=== PATIENT | female | born 1965 | race Caucasian/White ===

== ENCOUNTER 2016-04-13 16:25 | Outpatient (CLI) | payer OTHER | END 2016-04-13 16:26 | disposition home or self-care (01) | DX: M51.16 Intervertebral disc disorders with radiculopathy, lumbar region (principal); M54.12 Radiculopathy, cervical region ==

== ENCOUNTER 2016-04-14 09:01 | Outpatient (CLI) | payer OTHER | END 2016-04-14 09:02 | disposition home or self-care (01) | DX: Z00.00 Encounter for general adult medical examination without abnormal findings (principal) ==

== ENCOUNTER 2017-11-04 14:10 | Outpatient (CLI) | payer OTHER ==
--- NOTE | 2017-11-07 17:40 | Mammography Report ---
Procedure Date: 11/04/2017 Accession Number: [id number] / [id number] Procedure: MGN - Screening Mammo Dig Bilat CPT Code: FULL RESULT: EXAM: Screening Mammo Dig Bilat DATE: 11/04/2017 2:39 PM CLINICAL HISTORY: Routine screening TECHNIQUE: Bilateral CC and MLO views were obtained. COMPARISON: None FINDINGS: Extensive fatty replacement of the breast tissue. Faint asymmetric density upper outer left breast likely residual normal breast tissue. However due to the lack of comparison mammograms suggest spot compression and true lateral views. Otherwise no suspicious masses, clustered microcalcifications, or regions of architectural distortion are identified. IMPRESSION: Negative right breast. Needs additional evaluation left breast. RECOMMENDATION: Routine annual screening unless otherwise clinically indicated. BIRADS CATEGORY 0: Needs additional evaluation left breast STANDARD QUALIFYING STATEMENTS: 1. This examination was reviewed with the aid of Computer-Aided Detection (CAD). 2. A negative or benign imaging report should not delay biopsy if clinically suspicious findings are present. Consider surgical consultation if warrented. More than 5% of cancers are not identified by imaging. 3. Dense breasts may obscure an underlying neoplasm.
== END 2017-11-04 14:11 | disposition home or self-care (01) ==
LOC: DI.N 14:10
PROVIDERS: ATTEND Radiology Diagnostic Radiology
DX: Z12.31 Encounter for screening mammogram for malignant neoplasm of breast (principal); R92.8 Other abnormal and inconclusive findings on diagnostic imaging of breast
CPT/HCPCS: 77067

== ENCOUNTER 2018-04-27 10:09 | Outpatient (CLI) | payer OTHER ==
--- NOTE | 2018-04-27 13:55 | Mammography Report ---
Reason: ABN MAMMO - LT SPEC VIEWS Procedure Date: 04/27/2018 Accession Number: [id number] / [id number] Procedure: ESEQUIEL - Diag Special Views Dig LT CPT Code: FULL RESULT: EXAM: Diag Special Views Dig LT DATE: 04/27/2018 11:05 AM CLINICAL HISTORY: Short interval follow-up of finding noted on the screening exam of 11/04/2017 left breast. TECHNIQUE: Spot compressed 2-D left CC MLO and ML. Full field 2-D and 3-D 90 degrees lateral. COMPARISON: 11/04/2017. FINDINGS: The breasts demonstrate scattered fibroglandular densities bilaterally. Left breast: There is a persistent 10 mm focal asymmetry associated with probable layering calcifications in the 2:00 breast, 9 cm from the nipple. There are no suspicious areas of distortion. Targeted ultrasound is performed by both the technologist and the radiologist. At 2:00 8 cm from the nipple, sonographic correlate is noted as a oval, circumscribed, hypoechoic/anechoic, nonvascular parallel orientation structure consistent with clustered microcysts with layering calcium. IMPRESSION: Left breast: Clustered microcysts associated milk of calcium 2:00 8 cm from nipple corresponds to initial mammographic finding of concern. Benign. BI-RADS Category 2 recommend return to routine screening mammography, with next bilateral exam due in the October 2018. RECOMMENDATION: Routine annual screening unless otherwise clinically indicated. BI-RADS CATEGORY 2: Benign findings STANDARD QUALIFYING STATEMENTS: 1. This examination was not reviewed with the aid of Computer-Aided Detection (CAD). 2. A negative or benign imaging report should not preclude biopsy if clinically suspicious findings are present. 3. Dense breasts may obscure an underlying neoplasm. 4. This examination was reviewed with the aid of 3D breast imaging (tomosynthesis).
== END 2018-04-27 10:10 | disposition home or self-care (01) ==
LOC: DI 10:09
PROVIDERS: ATTEND Physician Assistant Medical
DX: R92.8 Other abnormal and inconclusive findings on diagnostic imaging of breast (principal); N60.02 Solitary cyst of left breast
CPT/HCPCS: 76642

== ENCOUNTER 2019-07-06 08:00 | Outpatient (CLI) | payer OTHER | END 2019-07-06 23:59 | disposition home or self-care (01) | LOC: LAB.WCP 08:00 | PROVIDERS: ATTEND Family Medicine | DX: R30.0 Dysuria (principal) | CPT/HCPCS: 87086; 87181 ==

== ENCOUNTER 2020-10-07 13:09 | Outpatient (CLI) | payer OTHER ==
[2020-10-07 18:41] LABS: BASOPHILS % (AUTO) 0.9 %; EOSINOPHILS # (AUTO) 0.1 10^3/uL (0.0-0.7); EOSINOPHILS % (AUTO) 2.2 %; HCT - HEMATOCRIT 38.8 % (37.0-47.0); HGB - HEMOGLOBIN 12.7 g/dL (12.0-16.0); LYMPHOCYTES # (AUTO) 1.7 10^3/uL (1.5-3.5); LYMPHOCYTES % (AUTO) 37.5 %; MEAN CORPUSCULAR HEMOGLOBIN 31.4 pg (27.0-31.0); MEAN CORPUSCULAR HGB CONC 32.7 g/dL (32.0-36.0); MEAN PLATELET VOLUME 10.8 fL (7.9-10.8); MONOCYTES # (AUTO) 0.5 10^3/uL (0.0-1.0); MONOCYTES % (AUTO) 11.3 %; NEUTROPHILS # (AUTO) 2.2 10^3/uL (1.5-6.6); NEUTROPHILS % (AUTO) 47.9 %; PLT - PLATELET COUNT 271 10^3/uL (130-450); RED BLOOD COUNT 4.04 10^6/uL (4.20-5.40); RED CELL DISTRIBUTION WIDTH 12.3 % (12.0-15.0); WHITE BLOOD COUNT 4.6 x10^3/uL (4.8-10.8)
[2020-10-07 18:52] LABS: ALBUMIN 4.8 g/dL (3.2-5.5); ALBUMIN/GLOBULIN RATIO 1.3 (1.0-2.2); ALKALINE PHOSPHATASE 48 IU/L (42-121); ALT ALANINE AMINOTRANSFERASE 24 IU/L (10-60); AST ASPARTATE AMINOTRANSFERASE 23 IU/L (10-42); BILIRUBIN,TOTAL 0.9 mg/dL (0.2-1.0); BUN - BLOOD UREA NITROGEN 17 mg/dL (6-20); CALCIUM 9.9 mg/dL (8.5-10.3); CARBON DIOXIDE - CO2 26 mmol/L (21-32); CHLORIDE 103 mmol/L (101-111); CHOL/HDL RATIO 2.8 (<4.4); CHOLESTEROL 216 mg/dL; CREATININE 0.9 mg/dL (0.4-1.0); GFR - MDRD 65 (>89); GLUCOSE 94 mg/dL (70-100); HDL CHOLESTEROL 77 mg/dL; LDL CHOLESTEROL,CALCULATED 123 mg/dL; LDL/HDL RATIO 1.6 (<4.4); POTASSIUM 4.3 mmol/L (3.5-5.0); SODIUM 138 mmol/L (135-145); TOTAL PROTEIN 8.4 g/dL (6.7-8.2); TRIGLYCERIDES 80 mg/dL; VLDL CHOLESTEROL 16 mg/dL
[2020-10-07 18:56] LABS: THYROID STIMULATING HORMONE 3.69 uIU/mL (0.34-5.60)
[2020-10-07 21:18] LABS: ESTIMATED AVERAGE GLUCOSE 114 mg/dL (70-100); HEMOGLOBIN A1c% 5.6 % (4.27-6.07)
== END 2020-10-07 23:59 | disposition home or self-care (01) ==
LOC: LAB.WCP 13:09
PROVIDERS: ATTEND Physician Assistant Medical
DX: Z00.00 Encounter for general adult medical examination without abnormal findings (principal); R73.9 Hyperglycemia, unspecified
CPT/HCPCS: 36415; 80053; 80061; 83036; 83721; 84443; 85025